=== PATIENT | female | born 1940 | race Caucasian/White ===

== ENCOUNTER 2022-06-22 12:21 | Emergency (ER) | payer MEDICARE, OTHER ==
[2022-06-22 12:43] VITALS: BP 168/62
--- NOTE | 2022-06-22 13:17 | XRAY Report ---
PROCEDURE: Knee 4 View LT INDICATIONS: Trauma TECHNIQUE: 4 views of the left knee(s) were acquired. COMPARISON: None. FINDINGS: Bones: Suspected nondisplaced fracture of the tibial plateau, extending to the intercondylar notch an d medial aspect. There is an knee joint effusion. Ill-defined proximal tibial shaft sclerotic appearance could be from a prior bone infarct. Soft tissues: No suspicious soft tissue calcifications. Vascular calcifications. IMPRESSION: Suspected tibial plateau fracture with a lipohemarthrosis. Consider CT to further charac terize. Reviewed by: Iglesia Leonard MD on 06/22/2022 1:15 PM PDT Approved by: Iglesia Leonard MD on 06/22/2022 1:15 PM PDT Station ID: [id number]
--- NOTE | 2022-06-22 14:11 | ED Physician Documentation ---
PD HPI LOWER EXT INJURY - Stated complaint Stated Complaint: L KNEE INJ - Chief complaint Chief Complaint: Trauma Ext - History obtained from History obtained from: Patient - History of Present Illness PD HPI LOW EXT INJURY LOCATION: Left, Knee Type of injury: Fall (she states she tripped and fell forward onto knees, mostly left one. Pain with walking and twisting. Minimally able to stand/walk on it. Denies injury to chest/abd/neck/head.) Timing - onset: Today Timing - duration: Hours Timing - details: Abrupt onset, Still present Worsened by: Moving, Palpating Associated symptoms: Swelling. No: Weakness, Numbness Review of Systems Constitutional: denies: Fever, Chills Nose: denies: Rhinorrhea / runny nose, Congestion Throat: denies: Sore throat Cardiac: denies: Chest pain / pressure Respiratory: denies: Cough GI: denies: Abdominal Pain Musculoskeletal: denies: Back pain Neurologic: denies: Focal weakness, Numbness, Altered mental status, Headache, Head injury, LOC PD PAST MEDICAL HISTORY - Past Medical History Cardiovascular: None Respiratory: None Musculoskeletal: None - Present Medications Home Medications: Ambulatory Orders Medication Instructions Recorded Confirmed HYDROcod/ACETAM 5/325 [[place] 5/325] 1 ea PO Q6H PRN #18 tablet 06/22/22 - Allergies Allergies/Adverse Reactions: Allergies Allergy/AdvReac Type Severity Reaction Status Date / Time chlorhexidine Allergy Rash Verified 06/22/22 12:43 latex AdvReac Unknown Verified 06/22/22 12:43 - Living Situation Living Situation: reports: With family Living Arrangement: reports: At home (visiting from [facility] and they are returning today, catching brenda later this evening. Will be home in 2-3 days. ) PD ED PE NORMAL - Vitals Vital signs reviewed: Yes - General General: Alert and oriented X 3, No acute distress, Well developed/nourished - HEENT HEENT: Atraumatic - Neck Neck: Supple, no meningeal sign, No bony TTP - Respiratory Respiratory: Clear bilaterally, Other (no chestwall tenderness) - Abdomen Abdomen: Soft, Non tender - Back Back: No spinal TTP - Derm Derm: Normal color, Warm and dry - Extremities Extremities: Other (left knee with tenderness proximal tibia laterally and an terior. Some effusion of knee. No gross laxity of ligaments, but gentle exam done due to pain. ) - Neuro Neuro: Alert and oriented X 3, No motor deficit, No sensory deficit, Normal speech Results - Vitals Vitals: Vital Signs - 24 hr 06/22/22 12:40 Temperature 36.0 C L Heart Rate 65 Respiratory 16 Rate Blood Pressure 168/62 H O2 Saturation 99 - Rads (name of study) left knee xray Radiology: Prelim report reviewed (likely but not conclusive tibial plateau fracture.), Discussed with rads (suggests CT), See rad report knee CT left Radiology: Prelim report reviewed (tibial plateau fracture, nondepressed nor displaced. Effusion noted. ), See rad report Departure - Departure Disposition: 01 Home, Self Care Clinical Impression: Fall from slip, trip, or stumble Qualifiers: Encounter type: initial encounter Qualified Code(s): W01.0XXA - Fall on same level from slipping, tripping and stumbling without subsequent striking against object, initial encounter Tibial plateau fracture Qualifiers: Encounter type: initial encounter Fracture type: closed Laterality: left Qualified Code(s): S82.142A - Displaced bicondylar fracture of left tibia, initial encounter for closed fracture Condition: Stable Record reviewed to determine appropriate education?: Yes Instructions: ED Fx Knee Prescriptions: HYDROcod/ACETAM 5/325 [[place] 5/325] 1 ea PO Q6H PRN #18 tablet PRN Reason: Pain Comments: Iser and crutches for minimal to no weightbearing on the leg. Your knee does look fractured in the tibial plateau. This may heal up okay in position or possibly may need surgical stabilization. Commonly this would not be done right away anyway so following up with the orthopedist back home in [place] is reasonable. Rest elevate and ice to the knee periodically today and tomorrow. Anti-inflam matory such as ibuprofen or naproxen are good 2-3 times daily. To that add Tylenol every 4-6 hours if needed or hydrocodone/acetaminophen if needed for worse pain. Follow-up with orthopedist next week back home in [place]. I transmitted your prescription to the [facility] pharmacy here in [place]. I am prescribing a short course of narcotic pain medication for you. These are potentially dangerous and addictive medications that should be used carefully. These medications may constipate you. Take an [id number] stool softener such as docusate twice daily with plenty of water while taking these medications. If you go 24 hours without a bowel movement, take [id number] MiraLAX, per package instructions. Do not drink or drive while taking these medications. If you received narcotic or sedating medications while in the emergency department do not drive for 24 hours. Store this medication in a safe, secure place and out of reach of children. It is a violation of federal law to give or sell this medication to another person or to use in a manner other than prescribed. The ED will not refill narcotic prescriptions, including prescriptions lost or stolen. You can dispose of unwanted medications at the [facility]'s office or at several pharmacies such as [facility]. Discharge Date/Time: 06/22/22 16:51
[2022-06-22] MEDS ORDERED: HYDROcod/ACETAM 5/325 MG TABLET PO STA (15:47)
--- NOTE | 2022-06-22 15:55 | CT Report ---
PROCEDURE: LOWER EXTREMITY WO - LT INDICATIONS: xray = possible plateau fx knee; suggest CT. TECHNIQUE: Noncontrast 3-mm axial sections acquired from the distal tibial shaft to the talar dome, with coronal and sagittal reformats. For radiation dose reduction, the following was used: automated exposure c ontrol, adjustment of mA and/or kV according to patient size. COMPARISON: Left knee radiographs 06/22/2022 FINDINGS: Image quality: Excellent. Bones: Minimally displaced comminuted fracture is seen involving the tibial plateau. There is extens ion to the lateral tibial plateau articular surface into the central eminence of the tibia without si gnificant step-off. The fracture extends to the medial tibial metaphyseal cortex. No involvement of t he medial tibial plateau articular surface is seen. Overall, the pattern is most compatible with a Sc hatzker type IV fracture. There is generalized osteopenia. Mild/moderate narrowing of the medial femo rotibial compartment joint space is seen. Soft tissues: There is a moderate lipohemarthrosis. The articular cartilages, menisci, ligaments, an d tendons are not well evaluated with standard CT. The musculature surrounding the knee is normal in bulk. Impression: 1.Minimally displaced comminuted fracture of the tibial plateau with components extending to the late ral tibial plateau articular surface and the central eminence of the tibia as well as the medial tibi al metaphyseal cortex. No significant step-off is seen at the articular surface. 2.Moderate lipohemarthrosis. Reviewed by: Alireza Fowler MD on 06/22/2022 3:54 PM PDT Approved by: Alireza Fowler MD on 06/22/2022 3:54 PM PDT Station ID: [id number]
== END 2022-06-22 16:51 | disposition home or self-care (01) ==
LOC: ED 12:21
DX: S82.142A Displaced bicondylar fracture of left tibia, initial encounter for closed fracture (principal); W01.0XXA Fall on same level from slipping, tripping and stumbling without subsequent striking against object, initial encounter
CPT/HCPCS: 99284